=== PATIENT | female | born 1935 | race Caucasian/White ===

== ENCOUNTER 2019-07-08 18:23 | Observation (INO) | payer MEDICARE, OTHER ==
[~2019-07-08] VITALS: Ht 154.9 cm; Wt 113.4 kg
[2019-07-08 19:50] LABS: BASOPHILS ABSOLUTE AUTO 0.07 K/mm3 (0.00-0.23); BASOPHILS PERCENT AUTO 1 % (0-2); EOSINOPHILS PERCENT AUTO 4 % (0-6); Hematocrit 36.3 % (33.0-51.0); Hemoglobin 12.4 g/dL (11.5-16.0); IMMATURE GRAN ABSOLUTE AUTO 0.01 K/mm3 (0.00-0.10); IMMATURE GRAN PERCENT AUTO 0 % (0-1); LYMPHOCYTES ABSOLUTE AUTO 2.45 K/mm3 (0.84-5.20); LYMPHOCYTES PERCENT AUTO 32 % (21-46); MONOCYTES PERCENT AUTO 10 % (4-13); Mean Corpuscular HGB 32.3 pg (26.0-34.0); Mean Corpuscular HGB Conc 34.2 g/dL (31.5-36.5); Mean Corpuscular Volume 95 fL (80-100); Mean Platelet Volume 9.5 fL (9.1-12.4); NEUTROPHILS ABSOLUTE AUTO 4.06 K/mm3 (1.96-9.15); NEUTROPHILS PERCENT AUTO 53 % (41-73); Platelet Count 220 K/mm3 (150-400); RDW Standard Deviation 48.5 fL (35.1-46.3); Red Blood Cell Count 3.84 M/mm3 (3.80-5.20); White Blood Cell Count 7.69 K/mm3 (4.00-11.30)
[2019-07-08 20:07] LABS: Albumin, Blood 3.1 g/dL (3.4-5.0); Albumin/Globulin Ratio 0.9 (0.8-1.8); Bilirubin, Total 0.4 mg/dL (0.1-1.0); Bun/Creatinine Ratio 27.8 (12.0-20.0); Calcium, Blood 8.8 mg/dL (8.5-10.1); Creatinine, Blood 1.33 mg/dL (0.40-1.00); Globulin, Blood 3.6 g/dL (2.2-4.0); Potassium, Blood 3.6 mmol/L (3.5-5.5); Total Protein, Blood 6.7 g/dL (6.4-8.2)
[2019-07-08 20:08] LABS: International Normalized Ratio 0.98; Prothrombin Time Results 10.5 Sec (9.7-11.5)
[2019-07-08] MEDS ORDERED: ATENOLOL100 MG PO (22:23)
--- NOTE | 2019-07-08 22:55 | NUR ---
3974 REPORT RECEIVED FROM REYNA RN VIA ER; PT TO ROOM VIA WHEELCHAIR WITH FAMILY AT SIDE; ALERT AND ORIENTED X 4; SLIGHT BLURRY VISION ON RIGHT SIDE NOTED; WEARS NON PERSCRIPTION GLASSES AT HOME. LIVES BY SELF IN [place].
[2019-07-08] MEDS ORDERED: EPINEPHRIN0.15 MG/0. IM (23:02)
--- NOTE | 2019-07-09 04:22 | NUR ---
SHIFT SUMMARY: 84 Y/O FEMALE RESTED COMFORTABLY ALL SHIFT; NO NEURO DEFICITS NOTED; ALERT AND ORIENTED X 4; PT HAS MRI SCHEDULED FOR TODAY; DENIES PAIN OR NAUSEA; BED ALARM APPLIED, BED LOW POSITION WITH CALL LIGHT AT SIDE.
[2019-07-09 05:40] LABS: BASOPHILS ABSOLUTE AUTO 0.08 K/mm3 (0.00-0.23); BASOPHILS PERCENT AUTO 1 % (0-2); EOSINOPHILS ABSOLUTE AUTO 0.33 K/mm3 (0.00-0.68); EOSINOPHILS PERCENT AUTO 5 % (0-6); Hematocrit 37.3 % (33.0-51.0); Hemoglobin 12.5 g/dL (11.5-16.0); IMMATURE GRAN ABSOLUTE AUTO 0.01 K/mm3 (0.00-0.10); IMMATURE GRAN PERCENT AUTO 0 % (0-1); LYMPHOCYTES ABSOLUTE AUTO 2.31 K/mm3 (0.84-5.20); LYMPHOCYTES PERCENT AUTO 34 % (21-46); MONOCYTES ABSOLUTE AUTO 0.74 K/mm3 (0.16-1.47); MONOCYTES PERCENT AUTO 11 % (4-13); Mean Corpuscular HGB 31.7 pg (26.0-34.0); Mean Corpuscular HGB Conc 33.5 g/dL (31.5-36.5); Mean Corpuscular Volume 95 fL (80-100); Mean Platelet Volume 9.3 fL (9.1-12.4); NEUTROPHILS ABSOLUTE AUTO 3.26 K/mm3 (1.96-9.15); NEUTROPHILS PERCENT AUTO 49 % (41-73); Platelet Count 205 K/mm3 (150-400); RDW Standard Deviation 48.5 fL (35.1-46.3); Red Blood Cell Count 3.94 M/mm3 (3.80-5.20); White Blood Cell Count 6.73 K/mm3 (4.00-11.30)
[2019-07-09 06:18] LABS: Bun/Creatinine Ratio 32.8 (12.0-20.0); Creatinine, Blood 0.95 mg/dL (0.40-1.00); Potassium, Blood 3.2 mmol/L (3.5-5.5)
[2019-07-09 12:31] LABS: CHOL/HDL RATIO 3.7; Cholesterol 190 mg/dL (50-200); HDL Cholesterol 52 mg/dL (>39); Low Density Lipoprotein Chol 104 mg/dL (0-110); Triglycerides 172 mg/dL (30-160); Very Low Density Lipoprot Chol 34 mg/dL (6-32)
[2019-07-09] MEDS ORDERED: Aspirin EC81 MG PO (13:25)
[2019-07-09] MEDS ORDERED: ATOR40TA PO (13:26)
--- NOTE | 2019-07-09 15:10 | NUR ---
DISCHARGE PT STATE CONTINUING BLURRED VISION HOWEVER STATES IS IMPROVING. MRI & ECHO COMPLETED TODAY. DR COHEN IN TO REVIEW RESULTS, +FOR INFARCT. DR BURKS PT MAY GO HOME TODAY, PLACE D/C ORDERS. IV D/C INTACT. ORDERS FAXED TO [facility]. D/C INSTRUCT REVIEWED w PT & HER BROTHER, EMPHASIS ON STROKE PREVENTION, NEW MED, F/U APPT. REPAIR ELECTRIC MOTOR ASSEMBLER ASSIST PT TO DRESS/GATHER BELONGINGS, PROVIDE W/C ESCORT [facility]. PT IS PLEASANT/APPRECIATIVE.
== END 2019-07-09 15:15 | disposition home or self-care (01) ==
LOC: ER 18:23 → MEDS 21:13
PROVIDERS: Family Medicine; Nurse Practitioner Acute Care; Physician Assistant; ADMIT Internal Medicine
DX: I63.9 Cerebral infarction, unspecified (principal); H53.47 Heteronymous bilateral field defects; I10 Essential (primary) hypertension; E78.5 Hyperlipidemia, unspecified; E66.9 Obesity, unspecified; Z90.710 Acquired absence of both cervix and uterus; Z90.49 Acquired absence of other specified parts of digestive tract; Z79.82 Long term (current) use of aspirin; Z79.899 Other long term (current) drug therapy; Z91.038 Other insect allergy status; Z68.42 Body mass index [BMI] 45.0-49.9, adult
CPT/HCPCS: 36415; 70450; 70496; 70498; 70551; 80048; 80053; 80061; 85025; 85610; 85730; 93005; 93010; 93306; 99285-25; G0378; Q9967